=== PATIENT | female | born 1955 | race Caucasian/White ===

== ENCOUNTER 2017-12-04 01:39 | Emergency (ER) | payer BC ==
[2017-12-04] MEDS: morphine 4 MG/ML VIAL IV (03:06)
[2017-12-04] MEDS: ONDANSETRON 4 MG INJ IV (03:06)
[2017-12-04] MEDS: SOD CHLORIDE 0.9% 1,000 ML IV (03:06)
[2017-12-04 05:25] LABS: ADD MAN DIFF? NO
[2017-12-04 05:30] LABS: WHITE BLOOD COUNT 12.8 10^3/ul (4.8-10.8)
[2017-12-04 05:30] LABS: BASOPHILS % 0.2 % (0.0-2.0); HEMATOCRIT 36.8 % (37.0-47.0); HEMOGLOBIN 12.6 g/dl (12.0-16.0); LYMPHOCYTES # 0.9 10^3/ul (0.8-2.9); LYMPHOCYTES % 6.9 % (15.0-51.0); MEAN CORPUSCULAR HEMOGLOBIN 29.9 pg (29.0-33.0); MEAN CORPUSCULAR HGB CONC 34.2 g/dl (32.0-37.0); MEAN CORPUSCULAR VOLUME 87.4 fl (82.0-101.0); MEAN PLATELET VOLUME 8.3 fl (7.4-10.4); MONOCYTE # 0.6 10^3/ul (0.3-0.9); MONOCYTES % 4.9 % (0.0-11.0); NEUTROPHIL # 11.2 10^3/ul (1.6-7.5); NEUTROPHILS % 87.5 % (39.0-77.0); PLATELET COUNT 182 10^3/UL (140-415); RED BLOOD COUNT 4.21 10^6/ul (4.20-5.40)
[2017-12-04 05:45] LABS: URINE BLOOD (Dip) POC Trace-intact (NEGATIVE); URINE KETONES (Dip) POC 4+ (NEGATIVE); URINE LEUKOCYTE EST (Dip) POC Negative (NEGATIVE); URINE NITRITE (Dip) POC Negative (NEGATIVE); URINE TOTAL PROTEIN POC 1+ (NEGATIVE)
[2017-12-04 05:51] LABS: ALANINE AMINOTRANSFERASE 53 IU/L (13-69); ALBUMIN 4.3 g/dl (3.3-4.9); ALBUMIN/GLOBULIN RATIO 1.38; ALKALINE PHOSPHATASE 71 IU/L (42-121); ANION GAP 19 (8-16); ASPARTATE AMINO TRANSFERASE 33 IU/L (15-46); BILIRUBIN,INDIRECT 1.1 mg/dl (0-1.1); BILIRUBIN,TOTAL 1.1 mg/dl (0.2-1.3); BLOOD UREA NITROGEN 15 mg/dl (7-20); CALCIUM 9.3 mg/dl (8.4-10.2); CARBON DIOXIDE 29 mmol/L (21-31); CHLORIDE 102 mmol/L (97-110); CREATININE 0.63 mg/dl (0.44-1.00); GLUCOSE 154 mg/dl (70-220); LIPASE 134 U/L (23-300); POTASSIUM 3.3 mmol/L (3.5-5.1); SODIUM 147 mmol/L (135-144); TOTAL PROTEIN 7.4 g/dl (6.1-8.1)
[2017-12-04] MEDS: POTASSIUM CHLORIDE (SR) 20 MEQ TAB PO (06:14)
== END 2017-12-04 06:19 | disposition home or self-care (01) ==
LOC: E/R 01:39
DX: R10.84 Generalized abdominal pain (principal); E87.6 Hypokalemia; R11.10 Vomiting, unspecified; R10.13 Epigastric pain; I10 Essential (primary) hypertension; E11.9 Type 2 diabetes mellitus without complications; Z79.84 Long term (current) use of oral hypoglycemic drugs
CPT/HCPCS: 36415; 74176; 76705; 80053; 81003; 82962; 83690; 85025; 96374; 96375; 99285-25